=== PATIENT | female | born 1990 | race Caucasian/White ===

== ENCOUNTER 2019-08-26 19:33 | Emergency (ER) | payer OTHER ==
[2019-08-26 19:53] VITALS: BP 134/85; PULSE 89; TEMP 98.3
--- NOTE | 2019-08-26 21:15 | PDOC ---
Documentation entered by Pedro Luis Ricks SCRIBE, acting as scribe for Katheryn Baires MD. Katheryn Baires MD: This documentation has been prepared by the Rambo aguirre Daniel, SCRIBE, under my direction and personally reviewed by me in its entirety. I confirm that the documentation accurately reflects all work, treatment, procedures, and medical decision making performed by me. History of Present Illness - General Chief Complaint: Abscess Boil Stated Complaint: RIGHT BREAST AREA ABSCESS History Source: Patient Exam Limitations: No Limitations - History of Present Illness Initial Comments: 08/26/19 20:32 The patient is a 29 year old with a past medical history of Hidradenitis Suppurativa here today for evaluation of right breast abscess. The patient reports that she has had multiple abscesses in the past usually in the groin but her current one is worse than usual. She reports that her current abscess is on her right chest/breast area, started 1.5 weeks ago and used Prid ointment which she thinks made it worse. She also notes 1 month of brownish white ear drainage without pain and notes swimming in a pool in June. She also endorses chills and chest pain. Patient denies headache, lightheadedness. Denies fever. Denies shortness of breath. Denies nausea, vomiting, diarrhea, abdominal pain. Denies any discharge or foul smell from her abscess. Allergies: NKDA Social history: Patient denies alcohol and illicit drugs use. Confirms tobacco use. 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 08/26/19 21:33 Past History - Past Medical History Allergies/Adverse Reactions: Allergies Allergy/AdvReac Type Severity Reaction Status Date / Time No Known Drug Allergies Allergy Verified 08/26/19 19:41 Home Medications: Ambulatory Orders Ciprofloxacin HCl/Dexameth [Ciprodex Otic Suspension] 4 drop TP BID 5 Days #1 bottle 08/26/19 Clindamycin [Cleocin -] 300 mg PO BID 08/26/19 Infliximab [Remicade 100MG Vial] 0 mg IVPB ASDIR 08/26/19 Rifampin mg PO BID 08/26/19 - Psycho Social/Smoking Cessation Hx Smoking History: Current every day smoker Have you smoked in the past 12 months: Yes Number of Cigarettes Smoked Daily: 20 'Breaking Loose' booklet given: 04/02/16 Hx Alcohol Use: Yes (OCC) Drug/Substance Use Hx: No Substance Use Type: Alcohol Review of Systems - Review of Systems Able to Perform ROS?: Yes Comments:: 08/26/19 20:32 Constitutional: +chills. no fevers. No weakness HEENT: no headache or dizziness. No congestion. No visual/hearing disturbances. no sore throat. no eye pain or discharge. +ear discharge. CVS: +chest pain. no syncope. Resp: no sob. No cough. Gastrointestinal: no abdominal pain, nausea, vomiting, diarrhea. Genitourinary: no urinary sx, hematuria. MUSCULOSKELETAL: No joint pain and swelling. No neck or back pain. SKIN: +abscess right breast. no drainage. no redness, no discharge, no rash. Hematologic: no easy bruising/bleeding. no lymphadenopathy NEUROLOGIC: No headache, dizziness, LOC or altered mental status. No weakness, numbness or tingling. Allergic/Immunologic: no allergies All other systems reviewed and negative, or as documented in HPI. 08/26/19 21:33 08/26/19 21:34 *Physical Exam - Vital Signs Last Vital Signs Temp Pulse Resp BP Pulse Ox 98.3 F 89 18 134/85 100 08/26/19 19:33 08/26/19 19:33 08/26/19 19:33 08/26/19 19:33 08/26/19 19:33 - Physical Exam Comments: 08/26/19 20:33 General: Well appearing, awake and alert, NAD. HEENT: NCAT, PERRL, EOMI, clear conjunctiva, anicteric, moist mucus membranes, clear oropharynx, no oral lesions.. bilateral T.M clear, white discharge in auditory canal. no tenderness to pinna manipulation. normal phonation. Neck: neck supple, FROM Resp: CTAB, normal and even respirations, no respiratory distress CVS: RRR, no murmurs, 2+ peripheral pulses throughout, no peripheral edema Abdomen: soft, NTND, no rebound or guarding. No CVAT. Back: nontender, normal inspection and ROM MSK: no edema, RODRIGUEZ x4, ROM intact. No clubbing or cyanosis. normal bulk and tone. Extremities: no calf tenderness Neuro: alert, oriented appropriately; no focal neurologic deficits Psych: Calm and cooperative Skin: +4x4 cm right medial right chest wall/breast adjacent to sternum, fluctuant, erythematous and tender to palpation.. warm and well perfused, cap refill <2 sec, normal color 08/26/19 21:34 Procedures - Incision and Drainage I&D Site: Right: Other Betadine cleansed: Yes Anesthesia: 1% Lidocaine Volume(ml): 3 Blade Size: 11 Attempts: 1 Plain Packing: No Complications: none Dressing: Yes Medical Decision Making - Medical Decision Making 08/26/19 21:35 Vital Signs Temp Pulse Resp BP Pulse Ox 98.3 F 89 18 134/85 100 08/26/19 19:33 08/26/19 19:33 08/26/19 19:33 08/26/19 19:33 08/26/19 19:33 vitals signs wnl, afebrile, nontoxic I&D of right chest wall abscess. wound culture sent warm compresses, analgesia c/w rifampin and clindamycin by her data collection specialist. wound care instructions. OE treatment with ciprodex to b/l ears for sx OE. TM clear, no indication for additional systemic abx return precautions/infection advised f/u primary and data collection specialist pt verbalized understanding of impression and plan. Discharge - Discharge Information Problems reviewed: Yes Clinical Impression/Diagnosis: Abscess or cellulitis of chest wall Otitis externa Qualifiers: Otitis externa type: unspecified type Chronicity: unspecified Laterality: bilateral Qualified Code(s): H60.93 - Unspecified otitis externa, bilateral Condition: Stable Disposition: HOME - Admission No - Additional Discharge Information Prescriptions: Ciprofloxacin HCl/Dexameth [Ciprodex Otic Suspension] 4 drop TP BID 5 Days #1 bottle - Follow up/Referral Referrals: Christos Varma [Primary Care Provider] - - Patient Discharge Instructions Patient Printed Discharge Instructions: DI for Otitis Externa, DI for Incision and Drainage of a Skin Abscess Additional Instructions: You had an abscess on your anterior chest that was drained, follow-up on the wound cultures that were obtained. You are currently on antibiotics already for your hidradenitis suppurativa will continue with that as this will cover for any possible infection causing her cellulitis/abscess. You may also use warm compresses to the area, the area will continue to drain which is normal. Follow up with your primary care doctor/data collection specialist within 48-72 hours for a wound check. clean with soap and water daily - do not scrub. Apply bacitracin or neosporin twice a day with warm soaks and cover with gauze/dressings. Return to the ED for any worsening pain, redness, streaking (red lines), swelling, fever or chills. Keep the wound clean and as dry as possible. Do not immerse or soak the wound in water. This means no swimming, washing dishes (unless thick rubber gloves are used), baths, or hot tubs until the stitches are removed or after about two weeks if absorbable suture material was used. Leave original bandages on the wound for the first 24 hours. After this time, showering or rinsing is recommended, rather than bathing. the first day, remove old bandages and gently cleanse the wound with soap and water. Cleansing twice a day prevents buildup of debris - take the ciprodex twice a day for bilateral ears for your ear infection of the auditory canal. no swimming or getting ears wet - Post Discharge Activity
== END 2019-08-26 21:16 | disposition home or self-care (01) ==
LOC: FER 19:33
PROC: 0H95XZZ Drainage of Chest Skin, External Approach (ICD-10-PCS; principal; 2019-08-26)
DX: L02.213 Cutaneous abscess of chest wall (principal); H60.93 Unspecified otitis externa, bilateral
CPT/HCPCS: 99283-25

== ENCOUNTER 2023-10-24 19:57 | Emergency (ER) | payer OTHER ==
[2023-10-24 20:16] VITALS: BP 122/78; PULSE 88; RESP 16; TEMP 98.7; BMI 30.2
== END 2023-10-24 21:07 | disposition home or self-care (01) ==
LOC: FER 19:57
PROC: 0H97XZZ Drainage of Abdomen Skin, External Approach (ICD-10-PCS; principal; 2023-10-24)
DX: L02.211 Cutaneous abscess of abdominal wall (principal); R10.31 Right lower quadrant pain; R19.03 Right lower quadrant abdominal swelling, mass and lump
CPT/HCPCS: 87070; 87077; 87186; 87205; 99283-25

== ENCOUNTER 2024-03-26 03:55 | Emergency (ER) | payer OTHER ==
[2024-03-26 04:02] VITALS: BP 124/76; PULSE 111; RESP 18; TEMP 99.8; BMI 28.3
[2024-03-26] MEDS ORDERED: IBUPROFEN 600 MG TABLET (FP) PO ONE (04:24)
[2024-03-26] MEDS: IBUPROFEN 600 MG TABLET (FP) PO ONE (04:25)
== END 2024-03-26 04:29 | disposition home or self-care (01) ==
LOC: FER 03:55
PROC: 0W9N0ZZ Drainage of Female Perineum, Open Approach (ICD-10-PCS; principal; 2024-03-26)
DX: N76.4 Abscess of vulva (principal)
CPT/HCPCS: 99283-25

== ENCOUNTER 2025-06-22 10:07 | Emergency (ER) | payer OTHER ==
[2025-06-22 10:35] VITALS: BP 104/73; PULSE 81; RESP 18; TEMP 98.2; BMI 28.3
[2025-06-22] MEDS: SODIUM CHLORIDE 0.9% 500 ML INFUS.BAG IV ONE (10:44)
[2025-06-22 10:54] LABS: MCHC 33.2 g/dl (32.2-35.5); MEAN CELL VOLUME 82.9 fl (79.4-94.8); MEAN PLT VOLUME 9.5 fl (9.4-12.3); RDW 12.4 % (12.1-16.8)
[2025-06-22 11:20] LABS: ALK PHOS 54 U/L (45-117); CO2 23 mmol/L (21-32); CREATININE 0.8 mg/dl (0.6-1.3); GLUCOSE,RANDOM 108 mg/dl (74-106); SGOT/AST 12 U/L (15-37); SGPT/ALT 9 U/L (7-52); TOT PROT 8.1 g/dl (6.4-8.2)
[2025-06-22 12:25] LABS: ERYTHROCYTE SEDIMENTATION RATE 38 mm/hr (0-20)
[2025-06-26 04:41] LABS: HIV INTERPRETATION NEGATIVE (NEGATIVE)
[2025-06-26 21:55] LABS: HCV DIAGNOSTIC IN-HOUSE W/RFLX NON-REACTIVE (NONREACTIVE)
== END 2025-06-22 13:24 | disposition home or self-care (01) ==
LOC: FER 10:07
DX: K51.90 Ulcerative colitis, unspecified, without complications (principal); R19.7 Diarrhea, unspecified; E86.0 Dehydration
CPT/HCPCS: 36415; 80053; 85025; 85651; 86140; 86803; 87324; 87389; 87449; 99284-25

== ENCOUNTER 2025-06-26 10:59 | Observation (INO) | payer OTHER ==
[2025-06-26 11:07] VITALS: BMI 28.3
[2025-06-26] MEDS ORDERED: ONDANSETRON 4 MG/2 ML VIAL ONE (11:44)
[2025-06-26] MEDS ORDERED: DEXAMETHASONE SOD PHOSPHATE 10 MG/1 ML VIAL ONE (11:44)
[2025-06-26] MEDS: ONDANSETRON 4 MG/2 ML VIAL IVPUSH ONE (12:02)
[2025-06-26] MEDS: DEXAMETHASONE SOD PHOSPHATE 10 MG/1 ML VIAL IVPUSH ONE (12:02)
[2025-06-26] MEDS: SODIUM CHLORIDE 1,000 ML IV STA (12:03)
[2025-06-26 12:20] LABS: ABSOLUTE IMMATURE GRANULOCYTES 0.23 x10^3/uL (0.0-0.031); BASOPHILS # 0.06 x10^3/uL (0.01-0.08); EOSINOPHIL % 0.1 % (0.7-5.8); EOSINOPHILS # 0.02 x10^3/uL (0.04-0.36); MCHC 34.5 g/dl (32.2-35.5); MEAN CELL VOLUME 80.8 fl (79.4-94.8); MEAN PLT VOLUME 9.4 fl (9.4-12.3); MONOCYTE # 0.98 x10^3/uL (0.24-0.86); MONOCYTE % 5.1 % (4.7-12.5); RDW 12.4 % (12.1-16.8)
[2025-06-26 13:15] LABS: CO2 24.0 mmol/L (21-32); GLUCOSE,RANDOM 128.0 mg/dL (74-106)
[2025-06-26 13:17] LABS: SGPT/ALT 31.0 U/L (13-61)
[2025-06-26 13:18] LABS: CREATININE 0.8 mg/dL (0.55-1.3); SGOT/AST 23.0 U/L (15-37)
[2025-06-26 13:19] LABS: TOT PROT 8.2 g/dl (6.4-8.2)
[2025-06-26 13:20] LABS: ALK PHOS 86.0 U/L (45-117)
[2025-06-26 13:38] LABS: EPI CELLS >36 /uL (0-25.1); HYALINE CASTS 17 /uL (0-3.1); URINE APPEARANCE TURBID; URINE BILIRUBIN 2+ (NEGATIVE); URINE COLOR ORANGE; URINE GLUCOSE (UA) NEGATIVE (NEGATIVE); URINE KETONE TRACE (NEGATIVE); URINE LEUK ESTERASE 1+ (NEGATIVE); URINE NITRITE POSITIVE (NEGATIVE); URINE PROTEIN 2+ (NEGATIVE); URINE RBC 1485 /uL (0-23.9); URINE UROBILINOGEN 1.0 mg/dL (0.2-1.0); URINE WBC 87 /uL (0-25.8)
[2025-06-26] MEDS ORDERED: POTASSIUM CHLORIDE ORAL LIQUID 20 MEQ/15 ML ONE (13:45)
[2025-06-26] MEDS: POTASSIUM CHLORIDE ORAL LIQUID 20 MEQ/15 ML PO ONE (13:48)
[2025-06-26 13:56] LABS: URINE BACTERIA 603.5 /uL (0-1359); URINE CRYSTALS PRESENT /hpf
[2025-06-26] MEDS ORDERED: CEFTRIAXONE 1 GM/50 ML BAG ONE (14:18)
[2025-06-26] MEDS: LACTATED RINGERS SOLUTION 1,000 ML/1,000 ML INFUS.BAG IV SCH (20:38)
[2025-06-27 06:44] VITALS: RESP 18
[2025-06-27 09:18] LABS: ABSOLUTE IMMATURE GRANULOCYTES 0.17 x10^3/uL (0.0-0.031); BASOPHILS # 0.03 x10^3/uL (0.01-0.08); EOSINOPHIL % 0.4 % (0.7-5.8); EOSINOPHILS # 0.04 x10^3/uL (0.04-0.36); MCHC 33.3 g/dl (32.2-35.5); MEAN CELL VOLUME 81.6 fl (79.4-94.8); MEAN PLT VOLUME 9.1 fl (9.4-12.3); MONOCYTE # 1.14 x10^3/uL (0.24-0.86); MONOCYTE % 11.5 % (4.7-12.5); RDW 12.4 % (12.1-16.8)
[2025-06-27] MEDS: CEFTRIAXONE 1 GM in DEXTROSE 5%-WATER - 50 ML IVPB SCH (10:28)
[2025-06-27 10:47] LABS: CO2 22.0 mmol/L (21-32); GLUCOSE,RANDOM 136.0 mg/dL (74-106)
[2025-06-27 10:51] LABS: CREATININE 0.96 mg/dL (0.55-1.3)
[2025-06-28 10:42] LABS: ABSOLUTE IMMATURE GRANULOCYTES 0.21 x10^3/uL (0.0-0.031); BASOPHILS # 0.06 x10^3/uL (0.01-0.08); EOSINOPHIL % 1.0 % (0.7-5.8); EOSINOPHILS # 0.16 x10^3/uL (0.04-0.36); MCHC 33.6 g/dl (32.2-35.5); MEAN CELL VOLUME 81.5 fl (79.4-94.8); MEAN PLT VOLUME 9.2 fl (9.4-12.3); MONOCYTE # 1.13 x10^3/uL (0.24-0.86); MONOCYTE % 7.3 % (4.7-12.5); RDW 12.5 % (12.1-16.8)
[2025-06-28 11:25] LABS: GLUCOSE,RANDOM 120.0 mg/dL (74-106); TOT PROT 7.5 g/dl (6.4-8.2)
[2025-06-28 11:26] LABS: CO2 21.0 mmol/L (21-32)
[2025-06-28 11:28] LABS: ALK PHOS 73.0 U/L (40-150)
[2025-06-28 11:31] LABS: CREATININE 0.69 mg/dL (0.55-1.3); SGOT/AST 18.0 U/L (5-34); SGPT/ALT 20.0 U/L (0-55)
[2025-06-28 13:11] VITALS: BP 104/70; PULSE 81; TEMP 98
[2025-06-30 23:09] LABS: STOOL CHLORIDE 61 mmol/L (.); STOOL POTASSIUM 54 mmol/L (.); STOOL SODIUM 48 mmol/L (.)
== END 2025-06-28 15:02 | disposition home or self-care (01) ==
LOC: JER 10:59 → JERBED 16:58 → J5S 21:03
PROVIDERS: ADMIT Internal Medicine
PROC: 3E03329 Introduction of Other Anti-infective into Peripheral Vein, Percutaneous Approach (ICD-10-PCS; principal; 2025-06-26)
PROC: 3E033GC Introduction of Other Therapeutic Substance into Peripheral Vein, Percutaneous Approach (ICD-10-PCS; 2025-06-26)
PROC: 3E0337Z Introduction of Electrolytic and Water Balance Substance into Peripheral Vein, Percutaneous Approach (ICD-10-PCS; 2025-06-26)
DX: R19.7 Diarrhea, unspecified (principal); L73.2 Hidradenitis suppurativa; R82.81 Pyuria; E87.6 Hypokalemia; Z88.8 Allergy status to other drugs, medicaments and biological substances
CPT/HCPCS: 36415; 74177-TC; 80048; 80053; 81003; 82438; 83690; 83735; 84100; 84302; 84703; 84999; 85025; 86140; 87040; 87045; 87046; 87205; 87209; 87324; 87449; 93005; 93010; 96361; 96365; 96367; 96375; 99285-25; G0378; J1100; Q9967